=== PATIENT | female | born 1935 | race Caucasian/White ===

== ENCOUNTER 2017-10-05 10:26 | Day surgery (SDC) | payer OTHER ==
[2017-09-28 10:27] VITALS: BMI 30.2
[2017-10-05] MEDS: KETOROLAC TROMETHAMINE 0.5% 5 ML BOTTLE OPTHALMIC ONE ×5 (11:20→11:40)
[2017-10-05] MEDS: PHENYLEPHRINE 2.5% OPHTH SOLN 15 ML BOTTLE ONE ×5 (11:20→11:40)
[2017-10-05] MEDS: GENTAMICIN SULFATE 0.3% OPHTHALMIC (EYE DROPS) 5ML BOTTLE ONE ×2 (11:20→11:40)
[2017-10-05] MEDS: CYCLOPENTOLATE HCL 1% OPHTH SOLN 2 ML BOTTLE ONE ×5 (11:20→11:40)
[2017-10-05] MEDS: TROPICAMIDE 1% OPHTH SOLN 15 ML BOTTLE ONE ×5 (11:20→11:40)
[2017-10-05 11:26] VITALS: TEMP 98.1
[2017-10-05] MEDS ORDERED: ACETAMINOPHEN 325 MG TABLET (FP) PO PRN (11:58)
[2017-10-05] MEDS ORDERED: BETAXOLOL HCL 0.25% OPHTHALMIC 10 ML DROPSBTL ONE (12:00)
[2017-10-05] MEDS ORDERED: TETRACAINE 0.5% OPHTH SOLN 2 ML BOTTLE ONE (12:00)
[2017-10-05] MEDS ORDERED: LIDOCAINE HCL/PF 2% SDV 5ML VIAL ONE (12:00)
[2017-10-05] MEDS ORDERED: EPI-SHUGARCAINE (EPINEPHRINE 0.025% & LIDOCAINE-PF 0.75%) 4ML ONE (12:00)
[2017-10-05] MEDS ORDERED: LIDOCAINE HCL 2% JELLY 10 ML CARTRIDGE ONE (12:01)
[2017-10-05] MEDS ORDERED: BUPIVACAINE HCL/PF 0.5% (5MG/ML) 10 ML VIAL ONE (12:01)
[2017-10-05] MEDS ORDERED: ACETYLCHOLINE 1:100 INTRA-OCUL 20 MG/2 ML KIT ONE (12:01)
[2017-10-05] MEDS ORDERED: MIDAZOLAM HCL 2 MG/2 ML SINGLE DOSE VIAL ONE (12:25)
[2017-10-05 14:11] VITALS: BP 128/63; PULSE 72
--- NOTE | 2017-10-05 14:21 | OP ---
DATE OF OPERATION: 10/05/2017 TITLE OF PROCEDURE: Planned extracapsular cataract extraction and phacoemulsification, insertion of posterior chamber lens implant, right eye. SURGEON: Jose Eduardo Isbell MD [employer] SURGEON: Jose Eduardo Isbell MD ANESTHESIA: Local with standby. ANESTHESIOLOGIST: José Miguel Bartholomew MD NURSE COMMERCIAL COUNSEL: Unknown at this time. PREOPERATIVE DIAGNOSIS: Cataract, right eye. POSTOPERATIVE DIAGNOSIS: Cataract, right eye. FINDINGS AND PROCEDURE: After successful peribulbar anesthesia was given to the patient, the patient was prepped and draped in the usual manner to expose the right eye. Tegaderm strips were placed on the lashes. The microscope brought into position over the right eye. A superior fornix-based flap was then fashioned for 12 mm using Deuce scissor and 0.12 forceps, and hemostasis achieved by wet field cautery. Limbal groove was then fashioned for 3 mm with a crescent blade and dissecting anterior into clear cornea, and then, a3-mm blade was used to enter the anterior chamber, and Viscoat. A 360-degree anterior capsulotomy was performed and the leaflet removed from the eye and phacoemulsification of the entire nucleus was done in bimanual technique in approximately 1-minute time, followed by irrigation and aspiration of all cortical material, leaving intact posterior capsule and a red reflex present. Provisc was injected in the posterior chamber to deepen the posterior capsule. Then, the implant was inspected and found to be free of defect, debris, and flaws. It was folded, placed in the Provisc-filled cartridge. The cartridge was placed in the injector, and the implant was injected into the eye, such that the inferior haptic was placed in the inferior capsular bag and the superior haptic in the superior capsular bag and then rotated into the horizontal position with a Sinskey hook. The Provisc was aspirated out, replaced with Miochol and Miostat and BSS. The wound was closed with a single interrupted 2-0 Ethilon suture, and the conjunctival-tenon flap reapproximated. At this point, the implant was fixated in the capsular bag, centrally located with a round pupil, intact posterior capsule, and a red reflex present. Topical Betoptic S and Maxitrol ophthalmic suspensions were placed as was bacitracin and polymyxin B ophthalmic ointment, and then, the Tegaderm strips were removed from the lids, as was the speculum. The lids were closed, and a patch and shield placed on the eye. The patient was then discharged from the operating room to the recovery area in good condition, having tolerated the procedure well. JOSE EDUARDO ISBELL M.D. [id number]
== END 2017-10-05 14:15 | disposition home or self-care (01) ==
LOC: FASU 10:26
PROVIDERS: ATTEND Ophthalmology
PROC: 08RJ3JZ Replacement of Right Lens with Synthetic Substitute, Percutaneous Approach (ICD-10-PCS; principal; 2017-10-05 12:42)
DX: H26.9 Unspecified cataract (principal)
CPT/HCPCS: 82962